=== PATIENT | male | born 1975 ===

== ENCOUNTER → 2023-09-18 | Emergency (ER) | payer BC ==
[~2023-09-18] MED LIST: KETOROLAC 30 MG/ML INJ ONE; methocarbamoL 750 MG TAB ONE
--- OUTSIDE RECORDS SUMMARY | 2023-09-18 00:05 | XMS REPORT | Continuity of Care Document ---
Author Name Unknown Address [address] [facility] [place]. [address] [place] [address] [facility] thconnect Address [address] [facility] [address] [place] [address] Care Team Providers Care Registrar Assistant Name Role Phone ROBERT LOPEZ Attending Clinician Unavailable Jam_Tone Attending Clinician Unavailable Lab, Adc Fam Pob I Attending Clinician Unavailab Melsisa Ford Attending Clinician [phone] MELISSA MARINO Attending Clinician Unavailable Doctor Unassigned, [place] Attending Clinician U Spencer Hunter MD Attending Clinician [phone] Jam_Tone Admitting Clinician Unavailable Payers Payer Name Policy Type Policy Number Effective Date Expirati on Date Source [place] [id number] 2018 00:00:00 Problems Condition Name Condition Details Condition Category Status Onset Date Resolution Date Last Treatment Date Treating Clinician Comments Source Knee pain, right Knee pain, right Disease Active 11-30 00:00: 00 [facility] Allergies, Adverse Reactions, Alerts Allergy Name Allergy Type Status Severity Reaction(s) Onset Date Inactive Date Treating Clinician Comments Source Jana Allergy to substanc e Active [facility] ASPARTAM E Allergy to substanc e Active [facility] NO KNOWN ALLERGIE S Drug Class Active [facility] Social History Social Habit Start Date Stop Date Quantity Comments Source Sex Assigned At [facility] Alcohol intake 2015-12-01 00:00:00 2015-12-01 00:00:00 [facility] Smoking Status Start Date Stop Date Source Never Smoker [facility] Current every day smoker 2015-12-01 00:00:00 [facility] Medications Ordered Medication Name Filled Medication Name Start Date Stop Date Current Medication? Ordering Clinician Indication Dosage Frequency Signature (SIG) Comments Components Source diclofenac 75 mg EC tablet 04-23 00:00: 00 Yes [id number] 9102 75mg Take 1 tablet by mouth 2 (two) times daily with meals. [facility] diclofenac 75 mg EC tablet 04-23 00:00: 00 Yes [id number] 9102 75mg Take 1 tablet by mouth 2 (two) times daily with meals. [facility] diclofenac 75 mg EC tablet 04-23 00:00: 00 Yes [id number] 9102 75mg Take 1 tablet by mouth 2 (two) times daily with meals. [facility] methylPREDN ISolone (MEDROL, KERRY,) 4 mg tablets 11-30 00:00: 00 Yes 84mg Take 21 Tabs by mouth SEE-INSTRU CTIONS. follow package directions [facility] methylPREDN ISolone (MEDROL, KERRY,) 4 mg tablets 11-30 00:00: 00 Yes 84mg Take 21 Tabs by mouth SEE-INSTRU CTIONS. follow package directions [facility] methylPREDN ISolone (MEDROL, KERRY,) 4 mg tablets 11-30 00:00: 00 Yes 84mg Take 21 Tabs by mouth SEE-INSTRU CTIONS. follow package directions [facility] methylPREDN ISolone (MEDROL, KERRY,) 4 mg tablets 11-30 00:00: 00 Yes 84mg Take 21 Tabs by mouth SEE-INSTRU CTIONS. follow package directions [facility] methylPREDN ISolone (MEDROL, KERRY,) 4 mg tablets 11-30 00:00: 00 Yes 84mg Take 21 Tabs by mouth SEE-INSTRU CTIONS. follow package directions [facility] methylPREDN ISolone (MEDROL, KERRY,) 4 mg tablets 11-30 00:00: 00 Yes 84mg Take 21 Tabs by mouth SEE-INSTRU CTIONS. follow package directions [facility] methylPREDN ISolone (MEDROL, KERRY,) 4 mg tablets 11-30 00:00: 00 Yes 84mg Take 21 Tabs by mouth SEE-INSTRU CTIONS. follow package directions [facility] methylPREDN ISolone (MEDROL, KERRY,) 4 mg tablets 11-30 00:00: 00 Yes 84mg Take 21 Tabs by mouth SEE-INSTRU CTIONS. follow package directions [facility] methylPREDN ISolone (MEDROL, KERRY,) 4 mg tablets 11-30 00:00: 00 Yes 84mg Take 21 Tabs by mouth SEE-INSTRU CTIONS. follow package directions [facility] losartan 100 mg-hydrochl orothiazide 25 mg tablet TAKE 1 TABLET BY MOUTH EVERY DAY for losartan 100 mg-hydrochl orothiazide 25 mg tablet TAKE 1 TABLET BY MOUTH EVERY DAY for No losartan 100 mg-hydroch lorothiazi de 25 mg tablet TAKE 1 TABLET BY MOUTH EVERY DAY for 90 [facility] olopatadine 0.1 % eye drops INSTILL 1 DROP INTO AFFECTED EYE(S) BY OPHTHALMIC ROUTE 2 TIMES PER DAY AT AN INTERVAL OF 6 TO 8 HOURS olopatadine 0.1 % eye drops INSTILL 1 DROP INTO AFFECTED EYE(S) BY OPHTHALMIC ROUTE 2 TIMES PER DAY AT AN INTERVAL OF 6 TO 8 HOURS No olopatadin e 0.1 % eye drops INSTILL 1 DROP INTO AFFECTED EYE(S) BY OPHTHALMIC ROUTE 2 TIMES PER DAY AT AN INTERVAL OF 6 TO 8 HOURS [facility] polymyxin B sulfate 10,000 unit-trimet hoprim 1 mg/mL eye drops INSTILL 1 DROP INTO AFFECTED EYE(S) BY OPHTHALMIC ROUTE EVERY 6 HOURS polymyxin B sulfate 10,000 unit-trimet hoprim 1 mg/mL eye drops INSTILL 1 DROP INTO AFFECTED EYE(S) BY OPHTHALMIC ROUTE EVERY 6 HOURS No polymyxin B sulfate 10,000 unit-trime thoprim 1 mg/mL eye drops INSTILL 1 DROP INTO AFFECTED EYE(S) BY OPHTHALMIC ROUTE EVERY 6 HOURS [facility] rosuvastati n 5 mg tablet TAKE 1 TABLET BY MOUTH EVERY DAY for 90 rosuvastati n 5 mg tablet TAKE 1 TABLET BY MOUTH EVERY DAY for 90 No rosuvastat in 5 mg tablet TAKE 1 TABLET BY MOUTH EVERY DAY for 90 [facility] Tamiflu 75 mg capsule Take 1 capsule twice a day by oral route for 5 days. Tamiflu 75 mg capsule Take 1 capsule twice a day by oral route for 5 days. No 1capsul e(s) BID Tamiflu 75 mg capsule Take 1 capsule twice a day by oral route for 5 days. [facility] amlodipine 10 mg tablet Take 1 tablet every day by oral route for 90 days. amlodipine 10 mg tablet Take 1 tablet every day by oral route for 90 days. No 1 Q1D amlodipine 10 mg tablet Take 1 tablet every day by oral route for 90 days. [facility] amlodipine 5 mg tablet TAKE 1 TABLET BY MOUTH EVERY DAY amlodipine 5 mg tablet TAKE 1 TABLET BY MOUTH EVERY DAY No amlodipine 5 mg tablet TAKE 1 TABLET BY MOUTH EVERY DAY [facility] losartan 100 mg-hydrochl orothiazide 25 mg tablet TAKE 1 TABLET BY MOUTH EVERY DAY losartan 100 mg-hydrochl orothiazide 25 mg tablet TAKE 1 TABLET BY MOUTH EVERY DAY No losartan 100 mg-hydroch lorothiazi de 25 mg tablet TAKE 1 TABLET BY MOUTH EVERY DAY [facility] rosuvastati n 5 mg tablet TAKE 1 TABLET BY MOUTH AT BEDTIME rosuvastati n 5 mg tablet TAKE 1 TABLET BY MOUTH AT BEDTIME No rosuvastat in 5 mg tablet TAKE 1 TABLET BY MOUTH AT BEDTIME [facility] amlodipine 10 mg tablet TAKE 1 TABLET BY MOUTH EVERY DAY amlodipine 10 mg tablet TAKE 1 TABLET BY MOUTH EVERY DAY No amlodipine 10 mg tablet TAKE 1 TABLET BY MOUTH EVERY DAY [facility] amlodipine 5 mg tablet TAKE 1 TABLET BY MOUTH EVERY DAY amlodipine 5 mg tablet TAKE 1 TABLET BY MOUTH EVERY DAY No amlodipine 5 mg tablet TAKE 1 TABLET BY MOUTH EVERY DAY [facility] cefdinir 300 mg capsule Take 1 capsule every 12 hours by oral route for 5 days. cefdinir 300 mg capsule Take 1 capsule every 12 hours by oral route for 5 days. No 1capsul e(s) Q12H cefdinir 300 mg capsule Take 1 capsule every 12 hours by oral route for 5 days. [facility] losartan 100 mg-hydrochl orothiazide 25 mg tablet TAKE 1 TABLET BY MOUTH EVERY DAY losartan 100 mg-hydrochl orothiazide 25 mg tablet TAKE 1 TABLET BY MOUTH EVERY DAY No losartan 100 mg-hydroch lorothiazi de 25 mg tablet TAKE 1 TABLET BY MOUTH EVERY DAY [facility] rosuvastati n 5 mg tablet TAKE 1 TABLET BY MOUTH AT BEDTIME rosuvastati n 5 mg tablet TAKE 1 TABLET BY MOUTH AT BEDTIME No rosuvastat in 5 mg tablet TAKE 1 TABLET BY MOUTH AT BEDTIME [facility] amlodipine 5 mg tablet Take 1 tablet every day by oral route for 90 days. amlodipine 5 mg tablet Take 1 tablet every day by oral route for 90 days. No 1 Q1D amlodipine 5 mg tablet Take 1 tablet every day by oral route for 90 days. [facility] losartan 100 mg-hydrochl orothiazide 25 mg tablet TAKE 1 TABLET BY MOUTH EVERY DAY for 90 losartan 100 mg-hydrochl orothiazide 25 mg tablet TAKE 1 TABLET BY MOUTH EVERY DAY for 90 No losartan 100 mg-hydroch lorothiazi de 25 mg tablet TAKE 1 TABLET BY MOUTH EVERY DAY for 90 [facility] olopatadine 0.1 % eye drops INSTILL 1 DROP INTO AFFECTED EYE(S) BY OPHTHALMIC ROUTE 2 TIMES PER DAY AT AN INTERVAL OF 6 TO 8 HOURS olopatadine 0.1 % eye drops INSTILL 1 DROP INTO AFFECTED EYE(S) BY OPHTHALMIC ROUTE 2 TIMES PER DAY AT AN INTERVAL OF 6 TO 8 HOURS No olopatadin e 0.1 % eye drops INSTILL 1 DROP INTO AFFECTED EYE(S) BY OPHTHALMIC ROUTE 2 TIMES PER DAY AT AN INTERVAL OF 6 TO 8 HOURS [facility] rosuvastati n 5 mg tablet TAKE 1 TABLET BY MOUTH EVERY DAY for 90 rosuvastati n 5 mg tablet TAKE 1 TABLET BY MOUTH EVERY DAY for 90 No rosuvastat in 5 mg tablet TAKE 1 TABLET BY MOUTH EVERY DAY for 90 [facility] amlodipine 5 mg tablet TAKE 1 TABLET BY MOUTH EVERY DAY amlodipine 5 mg tablet TAKE 1 TABLET BY MOUTH EVERY DAY No amlodipine 5 mg tablet TAKE 1 TABLET BY MOUTH EVERY DAY [facility] benzonatate 100 mg capsule Take 1 capsule 3 times a day by oral route for 10 days. benzonatate 100 mg capsule Take 1 capsule 3 times a day by oral route for 10 days. No 1capsul e(s) TID benzonatat e 100 mg capsule Take 1 capsule 3 times a day by oral route for 10 days. [facility] Vital Signs Vital Name Observation Time Observation Value Comments S ource BP Systolic 2023-09-11 00:00:00 136 mm[Hg] [facility] BP Diastolic 2023-09-11 00:00:00 90 mm[Hg] [facility] Height 2023-09-11 00:00:00 70 [in_i] [facility] Body Weight 2023-09-11 00:00:00 4624 [oz_av] [facility] BMI (Body Mass Index) 2023-09-11 00:00:00 41.5 kg/m2 [facility] BP Diastolic 2023-08-23 00:00:00 96 mm[Hg] [facility] Height 2023-08-23 00:00:00 70 [in_i] [facility] BP Systolic 2023-08-23 00:00:00 137 mm[Hg] [facility] Body Weight 2023-08-23 00:00:00 4692 [oz_av] [facility] BMI (Body Mass Index) 2023-08-23 00:00:00 42.1 kg/m2 [facility] BP Diastolic 2023-02-12 00:00:00 88 mm[Hg] [facility] BP Systolic 2023-02-12 00:00:00 129 mm[Hg] [facility] Body Weight 2023-02-12 00:00:00 4338 [oz_av] [facility] BP Diastolic 2023-02-06 00:00:00 103 mm[Hg] [facility] BP Systolic 2023-02-06 00:00:00 144 mm[Hg] [facility] Body Weight 2023-02-06 00:00:00 4532 [oz_av] [facility] Body height 2019-04-23 20:39:00 182.9 cm [facility] Body weight 2019-04-23 20:39:00 124.739 kg [facility] BMI 2019-04-23 20:39:00 37.30 kg/m2 [facility] Systolic blood pressure 2019-04-09 18:49:00 150 mm[Hg] [facility] Diastolic blood pressure 2019-04-09 18:49:00 102 mm[Hg] [facility] Body height 2019-04-09 18:44:00 182.9 cm [facility] Body weight 2019-04-09 18:44:00 124.739 kg [facility] BMI 2019-04-09 18:44:00 37.30 kg/m2 [facility] Heart rate 2019-04-09 18:44:00 92 /min [facility] Respiratory rate 2019-04-09 18:44:00 18 /min [facility] Procedures Procedure Date / Time Performed Performing Clinicia n Source REFERRAL- REQUEST/RESPONSE 2019-04-21 05:01:00 Doctor Unassigned, [place] [facility] Plan of Care Planned Activity Planned Date Details Comments Source Diagnostic Test Pending 2023-09-11 00:00:00 urinalysis, dipstick [code = urinalysis, dipstick] [facility] Diagnostic Test Pending 2023-09-11 00:00:00 culture, urine [code = culture, urine] [facility] Encounters Start Date/Time End Date/Time Encounter Type Admission Type Attending Clinicians Care Facility Care Department Encounter ID Source 2023-09-11 15:26:00 2023-09-11 15:26:00 Outpatient ROBERT CRAIG [facility] [id number] [facility] 2023-09-11 00:00:00 2023-09-11 00:00:00 Outpatient Jam_Tone [facility] [id number] [facility] 2023-09-11 00:00:00 2023-09-11 00:00:00 Robert Lopez MD: [address] [place] [address], [address], [place] [address] , Ph. MMG [facility] [id number] [facility] 2023-09-10 00:00:00 2023-09-10 00:00:00 Outpatient Jam_Tone [facility] [id number] [facility] 2023-08-23 00:00:00 2023-08-23 00:00:00 Outpatient Tomek[facility]T [facility] [id number] [facility] 2023-08-23 00:00:00 2023-08-23 00:00:00 Robert Lopez MD: [address] [facility], [address], [place] [address] , Ph. MMG [facility] [id number] [facility] 2023-08-22 00:00:00 2023-08-22 00:00:00 Outpatient Tomek_T [facility] [id number] [facility] 2023-06-08 00:00:00 2023-06-08 00:00:00 Outpatient Tomek_T [facility] [id number] [facility] 2023-05-04 00:00:00 2023-05-04 00:00:00 Outpatient Tomek_T [facility] [id number] [facility] 2023-03-30 00:00:00 2023-03-30 00:00:00 Outpatient Tomek_T [facility] [id number] [facility] 2023-02-23 00:00:00 2023-02-23 00:00:00 Outpatient Tomek_T [facility] [id number] [facility] 2023-02-12 00:00:00 2023-02-12 00:00:00 Outpatient Tomek_T [facility] MMG [id number] [facility] 2023-02-12 00:00:00 2023-02-12 00:00:00 Robert Lopez MD: [address] [facility], [address], [place] [address] , Ph. MMG [facility] [id number] [facility] 2023-02-06 00:00:00 2023-02-06 00:00:00 Outpatient Tomek_T MMG MMG [id number] [facility] 2023-02-06 00:00:00 2023-02-06 00:00:00 Robert Lopez MD: [address] [facility] [address] [facility], [address], [place] [address] , Ph. G [facility] [id number] [facility] 2020-03-29 09:40:13 2020-03-29 10:00:13 Laboratory Only Lab, Adc Fam Pob I Jamila [facility] .840.114 [id number] [facility] 2020-03-29 10:00:00 2020-03-29 10:00:00 Outpatient R JAMILA [facility] [id number] [facility] 2020-03-29 00:00:00 2020-03-29 00:00:00 Letter (Out) Doctor Unassigned, [place] [id number] [facility] 2019-04-23 15:32:20 2019-04-23 15:52:42 Office Visit Spencer Hernandez [facility] ..840.114 [id number] [facility] 2019-04-21 00:00:00 2019-04-21 00:00:00 Orders Only Doctor Unassigned, [place] [facility] [id number] [id number] [id number] [facility] 2019-04-14 00:00:00 2019-04-14 00:00:00 Telephone Spencer Hernandez [facility] 1..840.114 [id number] [id number] [id number] [facility] 2019-04-11 00:00:00 2019-04-11 00:00:00 Telephone Spencer Hernandez [facility] [place] [id number] [id number] [facility] 2019-04-09 13:47:27 2019-04-09 23:59:00 Hospital Encounter Spencer Hernandez [facility] [place] [id number] [id number] [facility] 2019-04-09 13:42:05 2019-04-09 14:12:24 Office Visit Spencer Hernandez [facility] [place] [id number] [facility] Results Test Description Test Time Test Comments Results Result Co mments Source [facility] and SARS-CoV+SARS-CoV-2 (COVID- 19) Ag panel - Upper respiratory specimen byRapid [id number] 11:12:00 * Test Item Value Reference Range Interpretation Comme nts RAPID SARS COV (test code = RAPID SARS COV) negative RAPID FLU A (test code = RAP ID FLU A) negative RAPID FLU B (test code = RAP ID FLU B) positive [facility]
--- NOTE | 2023-09-18 00:56 | ER ---
Nurse's Notes [facility] Name: Monster Salter Age: 48 yrs Sex: Male : 1975 Arrival Date: 09/18/2023 Time: 00:01 Bed 6 Private MD: Diagnosis: Pain in left shoulder Presentation: 09/18 00:10 Chief complaint: Patient states: "I had a fall at work and I think I pulled something as6 in my left shoulder". Coronavirus screen: At this time, the client does not indicate any symptoms associated with coronavirus-19. Ebola Screen: No symptoms or risks identified at this time. Initial Sepsis Screen: Does the patient meet any 2 criteria? No. Patient's initial sepsis screen is negative. Does the patient have a suspected source of infection? No. Patient's initial sepsis screen is negative. Risk Assessment: Do you want to hurt yourself or someone else? Patient reports no desire to harm self or others. Onset of symptoms was September 17, 2023. 00:10 Method Of Arrival: Ambulatory as6 00:10 Acuity: RAMANDEEP 4 as6 Historical: - Allergies: 00:11 Jana; as6 - PMHx: 00:11 Hypertensive disorder; Hypercholesterolemia; as6 - Immunization history:: Adult Immunizations up to date. - Social history:: Smoking status: Patient denies any tobacco usage or history of. Screenin:27 [facility] ED Fall Risk Assessment (Adult) History of falling in the last 3 months, rv including since admission No falls in past 3 months (0 pts) Score/Fall Risk Level 0 - 2 = Low Risk Oriented to surroundings, Maintained a safe environment, Educated pt \\T\\ family on fall prevention, incl call for assistance when getting out of bed, Assessed \\T\\ reinforced patient's understanding of fall precautions. Abuse screen: Denies threats or abuse. Denies injuries from another. Nutritional screening: No deficits noted. Tuberculosis screening: No symptoms or risk factors identified. Assessment: 00:27 General: Appears uncomfortable, Behavior is calm, cooperative. Pain: Complains of pain rv in left shoulder. Neuro: Level of Consciousness is awake, alert, obeys commands, Oriented to person, place, time, Appropriate for age. Cardiovascular: Capillary refill < 3 seconds Patient's skin is warm and dry. Respiratory: Airway is patent Respiratory effort is even, unlabored. GI: No signs and/or symptoms were reported involving the gastrointestinal system. : No signs and/or symptoms were reported regarding the genitourinary system. Musculoskeletal: Range of motion: limited in left shoulder, pain. Vital Signs: 00:13 BP 153 / 89; Pulse 90; Resp 20 S; Temp 98.1(TE); Pulse Ox 95% on R/A; Weight 131.54 kg as6 (R); Height 6 ft. 0 in. (R); Pain 7/10; 00:13 Body Mass Index 39.33 (131.54 kg, 182.88 cm) as6 00:13 Pain Scale: Adult as6 ED Course: 00:07 Patient arrived in ED. gm2 00:08 Cyrus Zaidi MD is Attending Physician. ec2 00:11 Triage completed. as6 00:11 Arm band placed on. as6 00:24 Tommy Bonds RN is Primary Nurse. rv 00:27 Patient has correct armband on for positive identification. Client placed on continuous rv cardiac and pulse oximetry monitoring. NIBP monitoring applied. 00:27 No provider procedures requiring assistance completed. rv 00:36 Shoulder Left (2 View) XRAY In Process Unspecified. EDMS 00:36 Clavicle Left XRAY In Process Unspecified. EDMS 00:55 Spencer Goodwin MD is Referral Physician. ec2 01:06 Patient did not have IV access during this emergency room visit. rv Administered Medications: 00:20 Drug: Methocarbamol PO 750 mg PO once Route: PO; as6 01:05 Follow up: Response: No adverse reaction rv 01:05 Drug: Ketorolac IM 30 mg IM once Route: IM; Site: right deltoid; rv 01:05 Follow up: Response: Medication administered at discharge. rv Medication: 00:27 VIS not applicable for this client. rv Outcome: 00:55 Discharge ordered by . ec2 01:05 Discharged to home ambulatory, with family, rv 01:05 Condition: good 01:05 Discharge instructions given to patient, family, Instructed on discharge instructions, follow up and referral plans. medication usage, Demonstrated understanding of instructions, follow-up care, medications, Prescriptions given X 1, 01:06 Patient left the ED. rv Signatures: Dispatcher [employer] EDTN Tommy Bonds RN RN rv Maurice Alston RN RN as6 Cyrus Zaidi MD MD ec2 Shira Young 2 Corrections: (The following items were deleted from the chart) :06 01:06 IV discontinued, intact, bleeding controlled, No redness/swelling at site. rv Pressure dressing applied, rv
--- NOTE | 2023-09-18 00:56 | EDPHYS ---
Physician Documentation [facility] Name: Monster Salter Age: 48 yrs Sex: Male : 1975 Arrival Date: 09/18/2023 Time: 00:01 Bed 6 Private MD: ED Physician Cyrus Zaidi HPI: 09/18 00:15 This 48 yrs old Male presents to ER via Ambulatory with complaints of Fall ec2 Injury, Shoulder Injury, Shoulder Pain. 00:15 Patient arrives today for evaluation of left shoulder injury. States that he was ec2 walking subsequently fell, grabbed the railing with his left arm and subsequently feels that he injured his left shoulder. States that he did not land on the shoulder, denies head strike, denies neck pain. Patient reports no LOC. Denies any prodromal symptoms, states that he strictly fell.. Historical: - Allergies: 00:11 Jana; as6 - PMHx: 00:11 Hypertensive disorder; Hypercholesterolemia; as6 - Immunization history:: Adult Immunizations up to date. - Social history:: Smoking status: Patient denies any tobacco usage or history of. ROS: 00:15 Constitutional: as per hpi ec2 Exam: 00:15 Constitutional: GEN: NAD Head: atraumatic Eyes: EOMI Ears: External ears are ec2 normal. CV: regular rate LUNGS: no respiratory distress ABD: non-distended SKIN: no evidence of rashes MSK: Good internal and external rotation of the left arm, intact distal neurovascular status, TTP to the left clavicle as well as the proximal left humerus. No obvious deformities appreciated. NEURO: moves all extremities equally Vital Signs: 00:13 BP 153 / 89; Pulse 90; Resp 20 S; Temp 98.1(TE); Pulse Ox 95% on R/A; Weight 131.54 kg as6 (R); Height 6 ft. 0 in. (R); Pain 7/10; 00:13 Body Mass Index 39.33 (131.54 kg, 182.88 cm) as6 00:13 Pain Scale: Adult as6 MDM: 00:08 Patient medically screened. ec2 00:15 Data reviewed: vital signs. ED course: Patient arrives today for evaluation of left ec2 shoulder pain. Examination remarkable for MSK findings as noted above. Will obtain radiograph of the left clavicle and left shoulder. Currently considering clavicle fracture, proximal humerus fracture, ligamentous injury as well as possible muscular injury.. 00:54 ED course: Radiograph independently reviewed and interpreted by me, shows no bony ec2 fracture. Will discharge home with prescription for Robaxin, give the patient a sling and have him follow-up with orthopedic Surgery and discussed possible outpatient MRI for ligamentous injury. Return precautions given.. 09/18 00:15 Order name: Shoulder Left (2 View) XRAY ec2 09/18 00:15 Order name: Clavicle Left XRAY ec2 09/18 00:15 Order name: Sling; Complete Time: 00:24 ec2 Administered Medications: 00:20 Drug: Methocarbamol PO 750 mg PO once Route: PO; as6 01:05 Follow up: Response: No adverse reaction rv 01:05 Drug: Ketorolac IM 30 mg IM once Route: IM; Site: right deltoid; rv 01:05 Follow up: Response: Medication administered at discharge. rv Disposition Summary: 09/18/23 00:55 Discharge Ordered Notes: Location: Home ec2 Condition: Stable ec2 Diagnosis - Pain in left shoulder ec2 Followup: ec2 - With: Spencer Goodwin MD - When: - Reason: Recheck today's complaints Discharge Instructions: - Discharge Summary Sheet ec2 - Shoulder Pain ec2 Forms: - Medication Reconciliation Form ec2 - Thank You Letter ec2 - Antibiotic Education ec2 - Prescription Opioid Use ec2 - Patient Portal Instructions ec2 - Leadership Thank You Letter ec2 Prescriptions: - methocarbamol 500 mg Oral tablet - take 2 tablets ORAL route 4 times per day; 30 tablet; Refills: 0, Product ec2 Selection Permitted Signatures: Dispatcher [employer] Tommy Pruitt RN RN Maurice Lugo RN RN as6 Cyrus Zaidi MD MD ec2
[2023-09-18 02:38] VITALS: BP 153/89; TEMP 98.1; O2SAT 95
--- NOTE | 2023-09-19 16:07 | RAD REPORT ---
EXAM DESCRIPTION: XR SHOULDER 2 OR MORE VIEWS LEFT CLINICAL HISTORY: PAIN COMPARISON: None. TECHNIQUE: XR SHOULDER 2 OR MORE VIEWS LEFT 09/18/2023 12:15 AM RECEIVING OPERATOR FINDINGS: There is no fracture. Joint spaces are preserved. Soft tissues are unremarkable. IMPRESSION: No acute osseous findings. Electronically signed by: Josias Neri MD 09/18/2023 12:43 AM RECEIVING OPERATOR Due to temporary technical issues with the PACS/Fluency reporting system, reports are being signed by the in house radiologists without review as a courtesy to insure prompt reporting. The interpreting radiologist is fully responsible for the content of the report.
--- NOTE | 2023-09-19 16:16 | RAD REPORT ---
EXAM DESCRIPTION: XR SHOULDER 2 OR MORE VIEWS LEFT CLINICAL HISTORY: PAIN COMPARISON: None. TECHNIQUE: XR SHOULDER 2 OR MORE VIEWS LEFT 09/18/2023 12:15 AM EXCAVATING CONTRACTOR FINDINGS: There is no fracture. Joint spaces are preserved. Soft tissues are unremarkable. IMPRESSION: No acute osseous findings. Electronically signed by: Josias Neri MD 09/18/2023 12:43 AM EXCAVATING CONTRACTOR Due to temporary technical issues with the PACS/Fluency reporting system, reports are being signed by the in house radiologists without review as a courtesy to insure prompt reporting. The interpreting radiologist is fully responsible for the content of the report.
== END ==
LOC: ER 00:01
DX: M25.512 Pain in left shoulder (principal); Z88.8 Allergy status to other drugs, medicaments and biological substances
CPT/HCPCS: 96372; 99284